=== PATIENT | male | born 1955 | race Caucasian/White ===

== ENCOUNTER 2025-04-02 15:46 | Emergency (ER) | payer OTHER, MEDICARE, SELFPAY ==
--- NOTE | ~2025-04-02 | US_ITS ---
EXAMINATION: US venous doppler [facility] DATE: 04/02/2025 17:12 INDICATION: Left lower limb pain and swelling of couple abnormality at the superior to mid left calf TECHNIQUE: Grayscale ultrasound images without and with compression and Doppler ultrasound images of the left lower extremity veins were obtained. COMPARISON: None. FINDINGS: The visualized portions of left common femoral vein, profunda (deep) femoral vein, femoral vein, popliteal vein, peroneal veins, posterior tibial veins, gastrocnemius vein and greater saphenous vein outflow are patent. There is a 7 x 3.8 x 1.8 cm lenticular complex mixed hypoechoic and anechoic cystic lesion at the lateral aspect of the superior to mid left calf. No evident internal vascular flow within the hypoechoic components on color Doppler to suggest neoplasm. IMPRESSION: 1. No deep venous thrombosis in the left lower limb. 2. 7 x 3.8 x 1.8 cm lenticular complex cystic lesion at the lateral aspect of the superior to mid left calf for which differential would include hematoma, abscess in the appropriate clinical setting or Avelar's cyst with synovitis. Reviewed, dictated and finalized at location A. IMPRESSION: 1. No deep venous thrombosis in the left lower limb. 2. 7 x 3.8 x 1.8 cm lenticular complex cystic lesion at the lateral aspect of t he superior to mid left calf for which differential would include hematoma, abs cess in the appropriate clinical setting or Avelar's cyst with synovitis.
[2025-04-02 15:51] VITALS: BP 184/100; PULSE 101; RESP 20; TEMP 36.9; O2SAT 99
[2025-04-02] MEDS: IBUPROFEN 400 MG TABLET 800 MG PO (17:20)
[2025-04-02] MEDS: ACETAMINOPHEN 500 MG TABLET 1000 MG PO (17:21)
--- NOTE | 2025-04-02 17:21 | ED.LOWEXIN ---
HPI - Extremity Injury (Lower) General Chief Complaint: Extremity Injury, Lower Stated Complaint: left leg injury Time Seen by Provider: 04/02/25 16:55 History of Present Illness HPI Narrative: 69-year-old otherwise healthy male with history of hypertension presenting to the emergency department after minor injury at school. 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 Patient noticed that approximately 1:00 p.m. he started having some pain in his left calf and was some swelling and slight pain. Denies any significant traumatic injuries. Denies any falls or direct traumatic injury. No history of blood clots, no blood thinner use. Did not take his blood pressure medications today prior to arrival. Denies any other injuries anywhere else. He ambulatory with a slight limp favoring his right side secondary to pain. No weakness or paresthesias. No sensation changes or loss of motor function. Related Data Allergies Allergy/AdvReac Type Severity Reaction Status Date / Time No Known Allergies Allergy Verified 04/02/25 16:11 Review of Systems Review of Systems: As reviewed above in HPI Exam Narrative: GENERAL: [Well-appearing, well-nourished, and in no acute distress.] HEAD: [Normocephalic, atraumatic.] EYES: [PERRLA and EOMI.] ENT: Nares clear, no rhinorrhea or epistaxis. Mucous membranes moist. NECK: Supple. CHEST: [Clear to auscultation. No respiratory distress.] HEART: [Regular rate and rhythm]. No murmur heard. [Normal peripheral pulses.] ABDOMEN: [Soft, nondistended], [nontender], [No rigidity or guarding] EXTREMITIES: Normal range of motion. 2+ dorsalis pedis and posterior tibialis pulses, warm extremities. Full range of motion of the ankle plantar and dorsiflexion range. Ambulatory. The medial aspect of his left calf has what appears to be a hematoma formation with some slight bluish discoloration over the skin and tenderness over the medial aspect of the calf but no significant exquisite tenderness, compartments are soft but slightly more tense compared to the right side. No posterior masses felt, no palpable cords or obvious signs of DVT. SKIN: Warm, dry, no rash. NEURO: [No focal deficits]. Alert and oriented [x3.] PSYCH: [Normal mood and affect.] Course Vital Signs Vital signs: Vital Signs Temperature 36.9 C 04/02/25 15:51 Pulse Rate 101 H 04/02/25 15:51 Respiratory Rate 20 04/02/25 15:51 Blood Pressure 184/100 H 04/02/25 15:51 Pulse Oximetry 99 04/02/25 15:51 Oxygen Delivery Room Air 04/02/25 15:51 Temperature 36.9 C 04/02/25 15:51 Pulse Rate 101 H 04/02/25 15:51 Respiratory Rate 20 04/02/25 15:51 Blood Pressure 184/100 H 04/02/25 15:51 Pulse Oximetry 99 04/02/25 15:51 Oxygen Delivery Room Air 04/02/25 15:51 MDM - Extremity Injury (Lower) MDM Narrative Medical decision making narrative: 69-year-old otherwise healthy male with history of hypertension presenting to the emergency department after minor injury at school. 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 Patient noticed that approximately 1:00 p.m. he started having some pain in his left calf and was some swelling and slight pain. Denies any significant traumatic injuries. Denies any falls or direct traumatic injury. No history of blood clots, no blood thinner use. Did not take his blood pressure medications today prior to arrival. Denies any other injuries anywhere else. He ambulatory with a slight limp favoring his right side secondary to pain. No weakness or paresthesias. No sensation changes or loss of motor function. Exam reassuring with normal range of motion. 2+ dorsalis pedis and posterior tibialis pulses, warm extremities. Full range of motion of the ankle plantar and dorsiflexion range. Ambulatory. The medial aspect of his left calf has what appears to be a hematoma formation with some slight bluish discoloration over the skin and tenderness over the medial aspect of the calf but no significant exquisite tenderness, compartments are soft but slightly more tense compared to the right side. No posterior masses felt, no palpable cords or obvious signs of DVT. Differential likely includes musculoskeletal hematoma, calf hematoma, less likely DVT or bony anomaly. Ultrasound was ordered for further delineation he is given Tylenol and ibuprofen as well as ice pack for comfort. Ultrasound reveals hematoma formation, no DVT. Consistent with his local exam findings and injury pattern. Patient counseled on expected management of calf hematomas as well as red flags to watch out for including signs and symptoms of compartment pressure elevations or compartment syndrome which is not evident now. Isaiah wrap was applied for comfort without any compromising without any significant compression and he remains neurovascularly intact. We discharged home with prescriptions for ibuprofen and Tylenol and encouraged to follow-up with his primary care provider. Safe for discharge home at this time. Medical Records Attestation: I reviewed the patient's medical records. Imaging Data Attestation: I personally reviewed and interpreted this imaging study as follows: My impression: Impressions Venous Doppler Study 04/02/25 17:13 IMPRESSION: 1. No deep venous thrombosis in the left lower limb. 2. 7 x 3.8 x 1.8 cm lenticular complex cystic lesion at the lateral aspect of the superior to mid left calf for which differential would include hematoma, abscess in the appropriate clinical setting or Avelar's cyst with synovitis. Discharge Plan Discharge Clinical Impression: Hematoma of left lower leg Patient Disposition: Home Condition: Stable Instructions: Antibiotic Form Additional Instructions: Your ultrasound shows no evidence of a blood clot. You do have a hematoma in the left calf that measures about 7 x 4 cm consistent with your exam findings. We will treat this with a course of anti-inflammatories including Tylenol and ibuprofen as well as having a apply ice to the area up to 20 minutes at a time up to 4 times a day for the next 48 hours and any can start adding in heat products to the area for pain swelling control. Apply gentle compression. Symptoms to watch out for includes worsening pain, worsening swelling to the point that you have difficulty walking, losing sensation in your toes, feeling cold toes or lacking circulation in the extremity, skin discoloration such as blue or purple toes or any other concerns and you should return to the emergency department otherwise follow the regimen above and follow-up with your regular primary care provider outpatient. Patient Language: Swedish Prescriptions: New ibuprofen 800 mg tablet 800 mg PO TID PRN (Reason: pain) Qty: 30 0RF acetaminophen [Tylenol Extra Strength] 500 mg tablet 1,000 mg PO TID PRN (Reason: pain) Qty: 30 0RF Follow-up/Referrals: UNKNOWN,DOCTOR [Non-Staff] Time of Disposition: 17:36
--- OUTSIDE RECORDS SUMMARY | 2025-04-02 18:00 | XMS_ITS | Data Portability ---
Author Organization [place] - [employer], Main Office Address [address] [place] [address] Care Team Providers Care Project Product Manager Name Role Phone TRAV BENITES Primary Care Provider [phone] Assessment Encounter Date Assessment Date Assessment LastModified by Organization Details LastModified Time 02/26/2025 02/26/2025 69 yo M with - WELL ADULT VISIT - B/L EAR WAX - UNINTENTIONAL WT LOSS - HTN, new - BPH - GERD - OVERWEIGHT - EX-CIGAR SMOKER (for 8 yrs) D/w pt about his findings, recent labs & imagines and further plan of care. Will do routine labs, x-ray. Meds as directed. Diet and exercise explained in detail. BP diary education given. Fall risk precautions explained. Cont f/u with GI/Surg as per schedule. HM: EGD - 2017, normal as per pt. Cont f/u with GI as per schedule. Colonoscopy - 2022, polyps ++. Cont f/u with GI as per schedule. Flu - Pt declined. Tdap - Pt declined. Pneumo, Shingrix, RSV - At pharmacy/HD. F/u in 3 weeks. B/l ear flushing on next visit. Annual labs in 03/14. [email or web address] Not available 02/26/2025 17:06:35 03/20/2025 03/20/2025 69 yo M with - DM II, uncontrolled - HLD, uncontrolled - HTG, uncontrolled - B/L EAR WAX - UNINTENTIONAL WT LOSS - HTN - BPH - GERD - OVERWEIGHT - EX-CIGAR SMOKER (for 8 yrs) CXR: 03/03/25. Annual labs: 02/28/25. D/w pt about his findings, recent labs & imagines and further plan of care. Explained about different options for him. Meds as directed. Risks Vs benefits of Aspirin 81mg po daily with food explained. Pt agreed. Diet and exercise explained in detail. BP & DM diary education given. Fall risk precautions explained. F/u with Ophtho as per schedule. Cont f/u with GI/Surg as per schedule. HM: EGD - 2017, normal as per pt. Cont f/u with GI as per schedule. Colonoscopy - 2022, polyps ++. Cont f/u with GI as per schedule. Flu - Pt declined. Tdap - Pt declined. Pneumo, Shingrix, RSV - At pharmacy/HD. F/u in 1 month. B/l ear flushing on next visit. Refer to [employer] on next visit. A1c, lipids, Microalb in 07/14. Annual labs in 03/14. [email or web address] Not available 03/20/2025 12:55:12 Plan of Treatment Reminders Order Date Submit Date Provider Last Modified By Organization Details Last Modified Time Details Appointments Any 30 2024 10:15A Rosetta Benites MD Not available Not available Not available Lab lipid panel, serum 2024 [email or web address] [facility] (Lab), [address] [place], [address], 03/20/2025 12:38:26 HbA1c (hemoglob in A1c), blood 2024 [id number] [facility] (Lab), [address] [place], [address], 03/20/2025 12:38:25 microalbu min, urine 2024 [id number] [facility] (Lab), [address] [place], [address], 03/20/2025 12:38:26 vitamin D, 25-hydrox y, total, serum 2024 [id number] [facility] (Lab), [address] [place], [address], 03/13/2025 12:04:48 CMP, serum or plasma 2024 025 [facility] (Lab), [address] [place], [address], 02/28/2025 12:42:53 CBC w/ auto diff 2024 025 [facility] (Lab), [address] [place], [address], 02/28/2025 12:37:11 lipid panel, blood [address] (Lab), [address] [place], [address], 03/13/2025 12:04:48 TSH, serum, reflex free T4 [address] (Lab), [address] [place], [address], 03/06/2025 11:18:21 PSA, serum or plasma [address] (Lab), [address] [place], [address], 03/06/2025 11:18:21 urinalysi s complete, reflex culture [address] (Lab), [address] [place], [address], 03/06/2025 11:18:21 HbA1c (hemoglob in A1c), blood [address] (Lab), [address] [place], [address], 03/06/2025 11:18:21 Referral ophthalmo logist referral - Please call patient to schedule an appointme nt. Thank you. 2024 [facility], [address], [place], [address], 03/24/2025 11:35:20 Procedures None recorded. Surgeries None recorded. Imaging XR, chest, 2 view 2024 [facility] ([facility]), [address] [place], [address], 03/03/2025 17:27:48 Medication Orders rosuvasta tin 10 mg tablet 2024 [facility] #[id number], [address], [place], [id number], 03/20/2025 12:38:36 metformin ER 500 mg tablet,ex tended release 24 hr 2024 [facility] #[id number], [address] [place], [place], [id number], 03/20/2025 12:38:35 Farxiga 10 mg tablet 2024 [facility] #[id number], [address] [place], [place], [id number], 03/20/2025 12:38:33 glimepiri de 1 mg tablet 2024 [facility] #[id number], [address], [place], [id number], 03/20/2025 12:38:34 Lantus Solostar U-100 Insulin 100 unit/mL (3 mL) subcutane ous pen 2024 [facility] #[id number], [address], [place], [id number], 03/20/2025 12:44:44 tamsulosi n 0.4 mg capsule 2024 025 [facility]62830, [address], [place], [id number], 03/20/2025 12:38:38 losartan 25 mg tablet 2024 025 [facility] #[id number], [address], [place], [id number], 03/20/2025 12:38:35 losartan 25 mg tablet 2024 025 [id number] [facility], [address] [place], [place], [id number], 02/26/2025 17:02:12 Debrox 6.5 % ear drops 2024 025 [id number], [address], [place], [id number], 02/26/2025 15:48:50 tamsulosi n 0.4 mg capsule 2024 025 [facility], [address], [place], [id number], 02/26/2025 15:52:35 Patient TargetsNo targets recorded. Patient Instructions Encounter Date Encounter Id Patient Instructions Last Modified By Organization Details Last Modified Time 03/20/2025 [id number] high cholesterol : care instructions Not available 03/20/2025 12:38:26 type 2 diabetes: care instructions Not available 03/20/2025 12:38:26 high blood pressure: care instructions Not available 03/20/2025 12:38:26 Reason for Referral Materials Associate Referral for Hypoglycemia due to type 2 diabetes mellitus Please call patient to schedule an appointment. Thank you. Referring Physician: Trav Benites, Family Medicine, Encounter Date: 03/20/2025 Results Created Date Observation Date Name Description Value Unit Range Abnormal Flag Note LastModifiedBy Organization Detail LastModifiedTime 02/29/2002/28/2025 CBC/C OMPLE TE BLD COUNT W/DIF F white blood cells 5.7 x10'3 /uL 4.2-10 .8 Not Available [facility] (Lab) [address] [place], [address], 02/28/2025 12:37:11 02/29/2002/28/2025 CBC/C OMPLE TE BLD COUNT W/DIF F red blood cells 5.01 x10'6 /uL 4.10-5 .80 Not Available [facility] (Lab) [address] [facility] [place], [address], 02/28/2025 12:37:11 02/29/2002/28/2025 CBC/C OMPLE TE BLD COUNT W/DIF F hemoglobin 16.1 g/dL 13.2-1 7.0 Not Available [facility] (Lab) [address] [place], [address], 02/28/2025 12:37:11 02/29/2002/28/2025 CBC/C OMPLE TE BLD COUNT W/DIF F hematocrit 45.9 % 39.3-5 0.0 Not Available [facility] (Lab) [address] [place], [address], 02/28/2025 12:37:02/29/2002/28/2025 CBC/C OMPLE TE BLD COUNT W/DIF F mean red cell volume 91.6 fL 80.0-9 7.0 Not Available [facility] (Lab) [address] [place], [address], 02/28/2025 12:37:11 02/29/2002/28/2025 CBC/C OMPLE TE BLD COUNT W/DIF F mean red cell hemoglobin 32.1 pg 27.0-3 3.0 Not Available [facility] (Lab) [address] [place], [address], 02/28/2025 12:37:11 02/29/2002/28/2025 CBC/C OMPLE TE BLD COUNT W/DIF F mean RBC HGB concentratio n 35.1 g/dL 31.0-3 6.0 Not Available [facility] (Lab) [address] [place], [address], 02/28/2025 12:37:11 02/29/2002/28/2025 CBC/C OMPLE TE BLD COUNT W/DIF F red cell distribution width 11.8 % 11.8-1 5.5 Not Available [facility] (Lab) [address] [place], [address], 02/28/2025 12:37:11 02/29/2002/28/2025 CBC/C OMPLE TE BLD COUNT W/DIF F platelets 164 x10'3 /uL 150-40 0 Not Available [facility] (Lab) [address] [place], [address], 02/28/2025 12:37:11 02/29/2002/28/2025 CBC/C OMPLE TE BLD COUNT W/DIF F mean platelet volume 11.4 fL 9.0-12 .4 Not Available [facility] (Lab) [address] [place], [address], 02/28/2025 12:37:11 02/29/2002/28/2025 CBC/C OMPLE TE BLD COUNT W/DIF F neutrophils 62.5 % 39.0-7 2.0 Not Available [facility] (Lab) [address] [facility] [place], [address], 02/28/2025 12:37:11 02/29/2002/28/2025 CBC/C OMPLE TE BLD COUNT W/DIF F lymphocytes 27.2 % 16.0-4 7.0 Not Available [facility] (Lab) [address] [place], [address], 02/28/2025 12:37:02/29/2002/28/2025 CBC/C OMPLE TE BLD COUNT W/DIF F monocytes 7.9 % 5.0-12 .0 Not Available [facility] (Lab) [address] [place], [address], 02/28/2025 12:37:02/29/2002/28/2025 CBC/C OMPLE TE BLD COUNT W/DIF F eosinophils 1.0 % 1.0-7. 0 Not Available [facility] (Lab) [address] [place], [address], 02/28/2025 12:37:02/29/2002/28/2025 CBC/C OMPLE TE BLD COUNT W/DIF F basophils 0.9 % 0.0-2. 0 Not Available [facility] (Lab) [address] [place], [address], 02/28/2025 12:37:02/29/2002/28/2025 CBC/C OMPLE TE BLD COUNT W/DIF F immature granulocytes 0.5 % 0.00-0 .50 Not Available [facility] (Lab) [address] [place], [address], 02/28/2025 12:37:02/29/2002/28/2025 CBC/C OMPLE TE BLD COUNT W/DIF F neutrophils, absolute count 3.58 x10'3 /uL 1.5-8. 0 Not Available [facility] (Lab) [address] [place], [address], 02/28/2025 12:37:11 02/29/2002/28/2025 CBC/C OMPLE TE BLD COUNT W/DIF F lymphocytes, absolute count 1.56 x10'3 /uL 1.07-3 .43 Not Available [facility] (Lab) [address] [place], [address], 02/28/2025 12:37:02/29/2002/28/2025 CBC/C OMPLE TE BLD COUNT W/DIF F monocytes, absolute count 0.45 x10'3 /uL 0.29-0 .99 Not Available [facility] (Lab) [address] [place], [address], 02/28/2025 12:37:11 02/29/2002/28/2025 CBC/C OMPLE TE BLD COUNT W/DIF F eosinophils, absolute count 0.06 x10'3 /uL 0.02-0 .53 Not Available [facility] (Lab) [address] [place], [address], 02/28/2025 12:37:11 02/29/2002/28/2025 CBC/C OMPLE TE BLD COUNT W/DIF F basophils, absolute count 0.05 x10'3 /uL 0.01-0 .08 Not Available [facility] (Lab) [address] [place], [address], 02/28/2025 12:37:02/29/2002/28/2025 CBC/C OMPLE TE BLD COUNT W/DIF F immature granulocytes ,absolute 0.03 x10'3 /uL 0.00-0 .05 Not Available [facility] (Lab) [address] [place], [address], 02/28/2025 12:37:02/29/2002/28/2025 CBC/C OMPLE TE BLD COUNT W/DIF F nucleated red blood cells 0.0 % -0 Not Available [facility] (Lab) [address] [place], [address], 02/28/2025 12:37:11 02/29/2002/28/2025 CBC/C OMPLE TE BLD COUNT W/DIF F NRBC# 0.00 x10'3 /uL Not Available [facility] (Lab) [address] [place], [address], 02/28/2025 12:37:11 02/29/2002/28/2025 LIPID PANEL cholesterol 232 mg/dL 140-19 9 high NIH ALIZE NSUS RECOM MENDA TION FOR RAINER STERO L: ADULT CHILD LOW RISK: <200 <170 BORDE RLINE : <200- 239 ----- HIGH RISK: >240 >200 Not Available [facility] (Lab) [address] [place], [address], 02/28/2025 12:42:41 02/29/2002/28/2025 LIPID PANEL triglyceride s 268 mg/dL 0-150 high NIH ALIZE NSUS REPOR T RECOM MENDA TION FOR TRIGL YCERI LUCINA: ADULT CHILD LOW RISK: <150 ----- BODER LINE: 150-1 99 ----- HIGH RISK: >200 ----- Not Available [facility] (Lab) [address] [place], [address], 02/28/2025 12:42:41 02/29/2002/28/2025 LIPID PANEL HDL cholesterol 37 mg/dL 40- low Not Available [facility] (Lab) [address] [place], [address], 02/28/2025 12:42:41 02/29/2002/28/2025 LIPID PANEL LDL cholesterol, calculated 141 mg/dL 0-130 high NIH ALIZE NSUS REPOR T RECOM MENDA TIONS FOR LDL: ADULT CHILD LOW RISK <130 <110 (OPTI MAL LDL) <100 ----- BORDE RLINE : 130-1 59 ----- HIGH RISK: >160 >130 A TRIGL YCERI DE RESUL T >400 INVAL IDATE S THE CALCU LATIO N FOR LDL FRACT IONAT ION - THE LDL RESUL T WILL NOT BE REPOR REBECCA. Not Available [facility] (Lab) [address] [place], [address], 02/28/2025 12:42:41 02/29/2002/28/2025 COMPR EHENS MANJU METAB OLIC PANEL sodium 132 mmol/ L 137-14 5 low Not Available [facility] (Lab) [address] [place], [address], 02/28/2025 12:42:52 02/29/2002/28/2025 COMPR EHENS MANJU METAB OLIC PANEL potassium 4.5 mmol/ L 3.5-5. 1 Not Available [facility] (Lab) [address] [place], [address], 02/28/2025 12:42:52 02/29/2002/28/2025 COMPR EHENS MANJU METAB OLIC PANEL chloride 95 mmol/ L 98-107 low Not Available [facility] (Lab) [address] [place], [address], 02/28/2025 12:42:52 02/29/2002/28/2025 COMPR EHENS MANJU METAB OLIC PANEL carbon dioxide 28 mmol/ L 22-30 Not Available [facility] (Lab) [address] [place], [address], 02/28/2025 12:42:52 02/29/2002/28/2025 COMPR EHENS MANJU METAB OLIC PANEL anion gap 13.5 mmol/ L 14-22 low Not Available [facility] (Lab) [address] [place], [address], 02/28/2025 12:42:52 02/29/2002/28/2025 COMPR EHENS MANJU METAB OLIC PANEL glucose 396 mg/dL 70-99 high Not Available [facility] (Lab) [address] [place], [address], 02/28/2025 12:42:52 02/29/20 25 02/28/2025 COMPR EHENS MANJU METAB OLIC PANEL BUN 16 mg/dL 8-19 Not Available [facility] (Lab) [address] [place], [address], 02/28/2025 12:42:52 02/29/20 25 02/28/2025 COMPR EHENS MANJU METAB OLIC PANEL creatinine 0.98 mg/dL 0.66-1 .25 Not Available [facility] (Lab) [address] [place], [address], 02/28/2025 12:42:52 02/29/2002/28/2025 COMPR EHENS MANJU METAB OLIC PANEL GFR >60 Refer ence Range : [place] ge GFR Healt hy Adult : >60 mL/mi n/1.7 3 m2 Chron ic Kidne y Disea se: 15-60 mL/mi n/1.7 3 m2 Kidne y Failu re: <15/m L/min /1.73 m2 www.n iddk. nih.g ov The MDRD study equat ion has not been valid ated in child sameera <18 years of age; pregn ant women ; the elder ly >85 years of age; or in some racia l or ethni c subgr oups, such as [facility] nics. Outsi de the valid ated anderson eters , estim ated GFR is less accur ate, requi ring clini sina judgm ent on a case- by-ca se basis . Clini sina inter preta tion for other races and ages must be made by the clini yogesh. The MDRD study equat ion has not been valid ated for the evalu ation of serum creat inine relat ed to nutri sindy l statu s or medic ation usage . For perso ns <18 years of age, a pedia tric GFR calcu lator is avail able on the F websi te: https ://sergo veras.o rg/pr ofess ional s/kdo qi/gf r_cal culat or Not Available [facility] (Lab) [address] [place], [address], 02/28/2025 12:42:52 02/29/2002/28/2025 COMPR EHENS MANJU METAB OLIC PANEL alkaline phosphatase 108 U/L 38-126 Not Available [facility] (Lab) [address] [place], [address], 02/28/2025 12:42:52 02/29/2002/28/2025 COMPR EHENS MANJU METAB OLIC PANEL alanine aminotransfe rase 21 U/L 0-50 Not Available [facility] (Lab) [address] [facility] [place], [address], 02/28/2025 12:42:52 02/29/2002/28/2025 COMPR EHENS MANJU METAB OLIC PANEL aspartate aminotransfe rase 24 U/L 15-46 Not Available [facility] (Lab) [address] [place], [address], 02/28/2025 12:42:52 02/29/2002/28/2025 COMPR EHENS MANJU METAB OLIC PANEL bilirubin, total 1.10 mg/dL 0.20-1 .30 Not Available [facility] (Lab) [address] [place], [address], 02/28/2025 12:42:52 02/29/2002/28/2025 COMPR EHENS MANJU METAB OLIC PANEL calcium 9.4 mg/dL 8.4-10 .2 Not Available [facility] (Lab) [address] [place], [address], 02/28/2025 12:42:52 02/29/2002/28/2025 COMPR EHENS MANJU METAB OLIC PANEL total protein 7.5 g/dL 6.3-8. 2 Not Available [facility] (Lab) [address] [place], [address], 02/28/2025 12:42:52 02/29/2002/28/2025 COMPR EHENS MANJU METAB OLIC PANEL albumin 4.5 g/dL 3.0-4. 4 high Not Available [facility] (Lab) [address] [place], [address], 02/28/2025 12:42:52 02/29/2002/28/2025 COMPR EHENS MANJU METAB OLIC PANEL globulin 3.0 g/dL 2.6-4. 2 Not Available [facility] (Lab) [address] [place], [address], 02/28/2025 12:42:52 02/29/2002/28/2025 COMPR EHENS MANJU METAB OLIC PANEL A/G ratio 1.5 ratio 1.0-2. 0 Not Available [facility] (Lab) [address] [place], [address], 02/28/2025 12:42:52 02/29/2002/28/2025 VITAM IN D 25-HY DROXY [id number] 32.5 NG/mL 30-100 Vitam in D Statu s: Defic ient: <20 ng/mL Insuf ficie nt: 20-29 ng/mL Suffi cient : 30-10 0 ng/mL Not Available [facility] (Lab) [address] [place], [address], 02/28/2025 12:45:31 02/29/2002/28/2025 TSH W/REF REICA FT4 TSH with reflex free T4 1.100 uIU/m L 0.465- 4.680 Not Available [facility] (Lab) [address] [place], [address], 02/28/2025 13:03:34 02/29/2002/28/2025 PSA SCREE N PSA medicare screen 2.89 NG/mL 0.00-4 .00 Not Available [facility] (Lab) [address] [place], [address], 02/28/2025 13:03:35 02/29/2002/28/2025 URINA LYSIS COMPL ETE/I RIS W/RFX color LIGHT- YELLOW Not Available [facility] (Lab) [address] [facility], [address], 02/28/2025 13:34:11 02/29/2002/28/2025 URINA LYSIS COMPL ETE/I RIS W/RFX appear CLEAR Not Available [facility] (Lab) [address] [place], [address], 02/28/2025 13:34:11 02/29/2002/28/2025 URINA LYSIS COMPL ETE/I RIS W/RFX specific gravity 1.046 1.001- 1.030 high Not Available [facility] (Lab) [address] [place], [address], 02/28/2025 13:34:11 02/29/2002/28/2025 URINA LYSIS COMPL ETE/I RIS W/RFX pH 5.5 pH_un its 5.0-9. 0 Not Available [facility] (Lab) [address] [place], [address], 02/28/2025 13:34:11 02/29/2002/28/2025 URINA LYSIS COMPL ETE/I RIS W/RFX leukocytes NEGATI VE gregg/u L negati ve- Not Available [facility] (Lab) [address] [place], [address], 02/28/2025 13:34:11 02/29/2002/28/2025 URINA LYSIS COMPL ETE/I RIS W/RFX nitrite NEGATI VE negati ve- Not Available [facility] (Lab) [address] [place], [address], 02/28/2025 13:34:11 02/29/2002/28/2025 URINA LYSIS COMPL ETE/I RIS W/RFX protein NEGATI VE mg/dL negati ve- Not Available [facility] (Lab) [address] [place], [address], 02/28/2025 13:34:11 02/29/2002/28/2025 URINA LYSIS COMPL ETE/I RIS W/RFX glucose >/=100 0 mg/dL normal - abnormal Not Available [facility] (Lab) [address] [place], [address], 02/28/2025 13:34:11 02/29/2002/28/2025 URINA LYSIS COMPL ETE/I RIS W/RFX ketones 40 mg/dL negati ve- abnormal Not Available [facility] (Lab) [address] [place], [address], 02/28/2025 13:34:11 02/29/2002/28/2025 URINA LYSIS COMPL ETE/I RIS W/RFX urobilinogen NORMAL mg/dL normal - Not Available [facility] (Lab) [address] [place], [address], 02/28/2025 13:34:11 02/29/2002/28/2025 URINA LYSIS COMPL ETE/I RIS W/RFX bilirubin NEGATI VE mg/dL negati ve- Not Available [facility] (Lab) [address] [place], [address], 02/28/2025 13:34:11 02/29/2002/28/2025 URINA LYSIS COMPL ETE/I RIS W/RFX blood NEGATI VE mg/dL negati ve- Not Available [facility] (Lab) [address] [place], [address], 02/28/2025 13:34:11 02/29/2002/28/2025 URINA LYSIS COMPL ETE/I RIS W/RFX white blood cells 0-8 /i??h pfi?? 0-8 Not Available [facility] (Lab) [address] [place], [address], 02/28/2025 13:34:11 02/29/2002/28/2025 URINA LYSIS COMPL ETE/I RIS W/RFX red blood cells 0-4 /i??h pfi?? 0-4 Not Available [facility] (Lab) [address] [place], [address], 02/28/2025 13:34:11 02/29/2002/28/2025 URINA LYSIS COMPL ETE/I RIS W/RFX bacteria NONE none seen- Not Available [facility] (Lab) [address] [place], [address], 02/28/2025 13:34:11 02/29/2002/28/2025 URINA LYSIS COMPL ETE/I RIS W/RFX mucous OCCASI ONAL /i??l pfi?? none seen- abnormal Not Available [facility] (Lab) [address] [place], [address], 02/28/2025 13:34:11 02/29/2002/28/2025 URINA LYSIS COMPL ETE/I RIS W/RFX squamous epithelial NONE /i??l pfi?? abnormal Not Available [facility] (Lab) [address] [place], [address], 02/28/2025 13:34:11 02/29/2002/28/2025 HEMOG LOBIN A1C HA1C 12.3 % 4.0-6. 0 high Diabe kylah Scree brian Crite dillon: <5.7% Consi stent with absen ce of diabe kylah 5.7-6 .4% Consi stent with incre ased risk for diabe kylah (pred iabet es) >OR=6 .5% Consi stent with diabe kylah REFER ENCE: Diabe kylah Care 2016, 39( ppl.1 ):s13 -s22 Not Available [facility] (Lab) [address] [place], [address], 02/28/2025 14:14:36 03/03/20 25 03/03/2025 XR, chest , 2 view [facility] [address] [place] [address] [phone] RADIOL OGY REPORT _ Patien t Name: KATELYNN RUSHING W Date Of : [birth year] 5 Date Of Study: 025 Ref. Physic oalf: KARLIE Walsh MD _ Examin ation: XR CHEST 2V Clinic al Indica tion: Routin e check up. denies sob or pain in chest. former smoker of cigars . Compar tj: None. Techni que: Radiog raph of the Chest Fronta l and latera l views were obtain ed. Findin gs: Lungs are clear and well expand ed with no pulmon ja infilt rate or pleura l effusi on. There is no pneumo thorax . The cardio medias tinal silhou ette is within normal limits . No acute osseou s abnorm ality is seen. Impres angela: No acute cardio pulmon ja diseas e is seen. Electr onical ly Signed 025 16:26 Pivi Leos [email or web address] [facility] (Imaging) [address] [place], [address], 03/20/2025 12:29:28 Result Notes Documentation Provider Name and Address Organization Details Recorded Time Xr, Chest, 2 View : [facility] [address] [place] [address] [phone] RADIOLOGY REPORT Patient Name: MACARIO Saenz Date Of : 1955 Date Of Study: 03/03/2025 Ref. Physician: KARLIE ANDERSON MD Examination: XR CHEST 2V Clinical Indication: Routine check up. denies sob or pain in chest. former smoker of cigars. Comparison: None. Technique: Radiograph of the Chest Frontal and lateral views were obtained. Findings: Lungs are clear and well expanded with no pulmonary infiltrate or pleural effusion. There is no pneumothorax. The cardiomediastinal silhouette is within normal limits. No acute osseous abnormality is seen. Impression: No acute cardiopulmonary disease is seen. Electronically Signed 03/03/2025 16:26 Betty Benites MD [address] [facility], [facility] [address], [place], [address], [facility] [employer] 03/20/2025 12:29:28 Problems Name Problem SNOMED Code Status Onset Date Resolution Date Notes Provider Name and Address Organization Details Recorded Time Gastroesoph ageal reflux disease without esophagitis 975509419 Active 2024 Trav Benites MD [address] [facility], [address], [place], [address], [employer] 15:44:14 Body mass index 25-29 - overweight [id number] Active 2024 Trav Benites MD [address] [facility], [address] [address], [place], [address], [employer] 15:44:24 Excessive cerumen in ear canal 521603092 Active 2024 Trav Benites MD [address] [facility], [facility] [address], [place], [address], [employer] 15:46:46 Benign hypertensio n 62979691 Active 2024 Trav Benites MD [address] [facility], [address] [place] [address], [place], [address], [employer] 15:50:25 Benign prostatic hyperplasia with outflow obstruction 809758523 Active 2024 Trav Benites MD [address] [facility], [address] [place] [address], [place], [address], [employer] 15:52:07 Ex-cigar smoker 827854332 Active 2024 Trav Benites MD [address] [facility], [address] [address], [place], [address], [employer] 17:05:01 Unintention al weight loss 041590778 Active 2024 Trav Benites MD [address] [facility], [address] [address], [place], [address], [employer] 17:06:10 Hypoglycemi a due to type 2 diabetes mellitus 5207042270029 03 Active 2024 Trav Benites MD [address] [facility], [facility] [address], [place], [address], [employer] 12:32:21 Mixed hyperlipide lilia 328028682 Active 2024 Trav Benites MD [address], [address], [place], [address], [facility] [employer] [facility] 12:34:55 Diabetes mellitus 74240776 Active 2024 Trav Benites MD [address], [address], [place], [address], [facility] [employer] [facility] [employer] [facility] 12:40:34 Problem Notes None recorded. Procedures Surgical History Date Name Laterality Status Provider Name and Address Organization Details Recorded Time 02/01/20 16 excision of lymph node completed Jud Ellington RN [facility] [employer] [facility] 02/26/2025 15:39:31 04/08/20 13 extraction of wisdom tooth completed Jud Ellington RN [facility] [employer] [facility] 02/26/2025 15:40:17 09/11/19 13 Back Surgery completed Jud Ellington RN [facility] [employer] [facility] 02/26/2025 15:39:09 11/02/19 11 repair of tendon of upper limb completed Jud Ellington RN [facility] [employer] [facility] 02/26/2025 15:38:17 12/26/18 84 arthroscopy of shoulder completed Jud Ellington RN [facility] [employer] [facility] 02/26/2025 15:37:44 05/01/19 72 appendectomy completed Jud Ellington RN [facility] [employer] [facility] 02/26/2025 15:37:00 Imaging Results None recorded. Procedure Notes None recorded. Medical Equipment None Reported. Allergies No known drug allergies Medications Name Sig Start Date Stop Date Status Note LastModified by Organization Details LastModified Time Debrox 6.5 % ear drops INSTILL 4 DROPS INTO AFFECTED EAR(S) BY OTIC ROUTE 2 TIMES PER DAY 2024 active Not Available Not Available Not Avai lable Accu-Chek Softclix Lancets USE 2-3 TIMES DAILY DIRECTED active Not Available Not Available No t Available omeprazole 40 mg capsule,del ayed release TAKE 1 CAPSULE BY MOUTH DAILY active Not Available Not Available No t Available glimepiride 1 mg tablet TAKE 1 TABLET BY MOUTH TWICE DAILY WITH MEALS active Not Available Not Available No t Available tamsulosin 0.4 mg capsule TAKE 1 CAPSULE BY MOUTH EVERY DAY AT BEDTIME active Not Available Not Available No t Available losartan 25 mg tablet TAKE 1 TABLET BY MOUTH DAILY active Not Available Not Available No t Available ondansetron 4 mg disintegrat ing tablet DISSOLVE 1 TABLET ON THE TONGUE EVERY 6 HOURS NEEDED FOR NAUSEA OR VOMITING 02/26 completed Not Available Not Available Not Available metformin ER 500 mg tablet,exte nded release 24 hr TAKE 2 TABLETS BY MOUTH TWICE DAILY AFTER MEALS active Not Available Not Available No t Available rosuvastati n 10 mg tablet TAKE 1 TABLET BY MOUTH EVERY DAY AT BEDTIME active Not Available Not Available No t Available Lantus Solostar U-100 Insulin 100 unit/mL (3 mL) subcutaneou s pen ADMINISTE R 20 UNITS UNDER THE SKIN EVERY DAY DIRECTED active Not Available Not Available No t Available Farxiga 10 mg tablet TAKE 1 TABLET BY MOUTH EVERY DAY AT NOON active Not Available Not Available No t Available Accu-Chek Guide Me Glucose Meter USE TO TEST BLOOD SUGAR active Not Available Not Available No t Available Paxlovid 300 mg (150 mg x 2)-100 mg tablets in a dose pack TK 2 NIRMATREL VIR TS AND 1 RITONAVIR T TOGETHER PO TWICE DAILY 02/26 completed Not Available Not Available Not Available Vitals Date Recorded Heart rate Provider Name an d Address Organization Details Last Updated DateTime 02/26/2025 96 /min Rosetta Greenwood [email or web address], [place], [address], [facility] [employer] 02/26/2025 15:42:09 Date Recorded Body height Body mass index (BMI) Body weight Body temperature Oxygen saturation Oxygen saturation in Arterial blood by Pulse oximetry Systolic And Diastolic Provider Name and Address Organization Details Last Updated DateTime 177.8 cm 29.2 kg/m2 20729.7 g 97.4 [degF] 94 % 94 % 138/84 mm[Hg] Jud Ellington RN [facility] [employer] 15:24:13 Date Recorded Oxygen saturation Oxygen saturation in Arterial blood by Pulse oximetry Heart rate Provider Name and Address Organization Details Last Updated DateTime 03/20/2025 95 % 95 % 98 /min Trav Benites MD [address] [email or web address], [address], [facility] [employer] 03/20/2025 12:52:43 Date Recorded Body height Body mass index (BMI) Body weight Body temperature Systolic And Diastolic Provider Name and Address Organization Details Last Updated DateTime 03/20/2025 177.8 cm 28.9 kg/m2 08203.7 7 g 98.1 [degF] 140/70 mm[Hg] Jud Ellington RN [facility] [employer] 12:25:21 Social History Question Answer Notes LastModified by [facility] Details LastModified Time Tobacco Smoking Status Former Smoker Jud Ellington RN [facility], [facility] [employer] 02/26/2025 15:36:16 What Is Your Level Of Caffeine Consumption? Moderate 20 Oz Coffee /day 32 Oz Andrews Pepsi/day [email or web address] Information not available 02/26/2025 When Did You Quit Smoking? 16+yearssince lastcigarette [email or web address] Information not available 02/26/2025 What Is Your Current Pack Years? 10packyears [email or web address] Information not available 02/26/2025 At What Age Did You Start Smoking Tobacco? 22 [email or web address] Information not available 02/26/2025 How Much Tobacco Do You Smoke? 0.25 PPD Smoked Cigars [email or web address] Information not available 02/26/2025 How Many Years Have You Smoked Tobacco? 5 Smoked Cigars [email or web address] Information not available 02/26/2025 Sex: Unknown Functional Status Question Answer Note LastModified by [facility] Details LastModified Time Do you use any illicit or recreational drugs? No [email or web address] Information not available 02/26/2025 Do you or have you ever used any other forms of tobacco or nicotine? No [email or web address] Information not available 02/26/2025 What is your level of alcohol consumption? Occasional [email or web address] Information not available 02/26/2025 Mental Status None recorded. Family History Relationship Description Onset Age of this Age Resolved Age Notes LastModified by Organization Details LastModified Time Mother Essential hypertension 35 87 [email or web address] Not available 15:25:26 Mother History of cardiac surgery 65 87 [email or web address] Not available 02/26 15:28:18 Mother Cerebrovascu lar accident 65 87 [email or web address] Not available 15:28:35 Mother Malignant neoplasm of skin 65 87 [email or web address] Not available 02/26 15:29:50 Mother Scoliosis deformity of spine 50 87 [email or web address] Not available 02/26 15:33:29 Mother Hammer toe 55 87 [email or web address] Not avail able 02/26/2025 15:33:55 Father Essential hypertension 30 91 [email or web address] Not available 15:26:13 Father Myocardial infarction 55 91 [email or web address] Not available 02/17 15:27:04 Father Combination internal cardiac defibrillato r and pacemaker in situ 65 91 [email or web address] Not available 02/26 15:27:26 Father Malignant neoplasm of prostate 78 91 [email or web address] Not available 02/26 15:29:29 Father Chronic obstructive pulmonary disease 70 91 Not available 02/26 15:32:03 Sister Essential hypertension 50 [email or web address] Not available 07/2024 12:05:54 Sister Scoliosis deformity of spine 50 [email or web address] Not available 2024 12:05:54 Paternal Grandmother Malignant neoplasm of colon 45 73 [email or web address] Not available 02/26 15:30:38 Maternal Grandfather Malignant neoplasm of lung 81 [email or web address] Not available 2024 12:05:54 Maternal Grandfather Malignant neoplasm of stomach 81 [email or web address] Not available 2024 12:05:54 Medical History No medical history recorded. Past Encounters Encounter ID Performer Location Encounter Start Date Encounter Closed Date Diagnosis/Indication Diagnosis SNOMED-CT Code Diagnosis ICD10 Code Diagnosis IMO Codes Diagnosis Note [id number] Trav Benites MD [facility] [address] [address] 02/26/2025 14:29:27 02/26/2025 15:58:34 Adult health examination 378250509 Z00.00 Gastroesop hageal reflux disease without esophagitis 948693054 K21.9 521599 Body mass index 25-29 - overweight 493433703 E66.3 903697 Screening for disorder 399743850 Z13.9 Excessive cerumen in ear canal 433202182 H61.23 11012057 Ex-cigar smoker 47590879 8 Z87.105 9059176 Benign hypertension 1072 5009 I10 824294 Benign pro static hyperplasia with outflow obstruction 207102662 N40.1 N13.8 567998 Unintentio nal weight loss 199902108 R63.4 061648 [id number] Trav Benites MD [address] [address] 02/28/2025 08:23:36 02/28/2025 09:49:06 [id number] Trav Benites MD [address] [address] 03/20/2025 12:05:43 03/20/2025 12:58:18 Gastroesophageal reflux disease without esophagitis 565987540 K21.9 701745 Body mass index 25-29 - overweight 580607529 E66.3 830313 Excessive cerumen in ear canal 116221059 H61.23 44330117 Ex-cigar smoker 53014135 8 Z87.005 1702770 Benign hypertension 1072 5009 I10 943725 Benign pro static hyperplasia with outflow obstruction 490534249 N40.1 N13.8 258136 Unintentio nal weight loss 895363656 R63.4 121576 Hypoglycem ia due to type 2 diabetes mellitus 2090986885 83006 E11.649 80468856 Mixed hyperlipidemia 267 415180 E78.2 84177 Diabetes mellitus 220793 09 E11.9 36420 Health Concerns Section Related Observation LastModified by Organization Detai ls LastModified Time None Recorded Concern Status LastModified by Organization Details LastModified Time None Recorded Advance Directives Directive None Recorded Payers Insurance Date Sequence Insurance Name Policy Number Policy Soria Covered Member ID Soria Member ID Guarantor Name 03/20/2025 1 [employer] (O) [id number] Percy Moseley [id number] 1 Percy Moseley 03/20/2025 1 [employer] [id number] Percy Moseley [id number] 1 Percy Moseley Notes Date Note Type Note Provider Name and Address Organization Details Recorded Time 02/26/2025 text/html New pt visit:69 yo M is here to establish his care. Pt was seeing PCP at [facility] in the past.Doing overall well. Pt has few questions for me. Pt did not have any labs for last few yrs. Pt is f/u with Dr. Montana (Surg) for his chronic GERD and wt loss and had EDG and c-scope done with him.PMH, and SH reviewed. Trav Benites MD [address], [address], [place], [address], [employer] 02/26/2025 17:08:36 03/20/2025 text/html Pt is here for f/u on his labs, cxr and b/l ear flushing. Doing overall well. Denies any new concern. Pt has not used ear drops yet. No h/o DM in the past. Pt did not have any labs done in last 7-8 yrs. Pt is f/u with Dr. Montana (Surg) for his chronic GERD and wt loss and had EDG and c-scope done with him. Trav Benites MD [address], [address], [place], [address], [employer] 03/20/2025 12:56:05
--- OUTSIDE RECORDS SUMMARY | 2025-04-02 18:00 | XMS_ITS | Encounter Summary ---
Author Organization [facility] Address [facility] [place] [address] Care Team Providers Care Cyber Security Engineer Name Role Phone Stacy Coreas MD Primary Care Provider [phone] EDWIN Edmond Angela Primary Care Provider Encounter Details Date Type Department Care Team (Late st Contact Info) Description 09/02/2017 Abstract [facility] CONVERSION [address] [place] [address] , Generic ConversionMD Social History Tobacco Use Types Packs/Day Years Used Date Smoking Tobacco: Never Assessed Sex and Gender Information Value Date Recorded Sex Assigned at Not on file Legal Sex Male 7:05 PM CDT Gender Identity Not on file Sexual Orientation Not on file documented as of this encounter Plan of Treatment Not on file documented as of this encounter Visit Diagnoses Not on filedocumented in this encounter Care Teams Cyber Security Engineer Relationship Specialty Start Date End Date Stacy Coreas MD PCP - General FAMILY PRACTICE 06/07/18 09/05/22 Kate Snowden FNP-BC [address] [place] [address] [place] [address] PCP - General Nurse Practitioner Family 09/06/22 documented as of this encounter
--- OUTSIDE RECORDS SUMMARY | 2025-04-02 18:00 | XMS_ITS | Clinical Summary ---
Author Organization [facility] Address [facility] [place] [address] Care Team Providers Care Airfield Defence Guard Name Role Phone EDWIN Edmond Angela Primary Care Provider Allergies No known active allergies Medications fluorouracil 5 % creamIndication s:Actinic keratoses Apply topically daily. 40 g 8 Active omeprazole 40 MG capsule Take 1 capsule by mouth 2 (two) times daily. 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 Esophageal stricture 06/15/2018 Overview (06/15/2018): S/p dilation 2016 Gastroesophageal reflux disease with esophagitis 06/15/2018 Family History Medical History Relation Comments Coronary artery disease Father Prostate Cancer Father Cancer Mother skin Hypertension Mother Stroke Mother Colon Cancer Other Relation Status Comments Father Mother Other Social History Tobacco Use Types Packs/Day Years Used Date Smoking Tobacco: Never Smokeless Tobacco: Never Alcohol Use Standard Drinks/Week Comments Yes 0 (1 standard drink = 0.6 oz pur e alcohol) AUDIT-C Answer Date Recorded Frequency of Alcohol Consumption 2-4 times a mon06/15/2018 Average Number of Drinks 1 or 2 018 Frequency of Binge Drinking Never 05/20 Sex and Gender Information Value Date Recorded Sex Assigned at Not on file Legal Sex Male 7:05 PM CDT Gender Identity Not on file Sexual Orientation Not on file Last Filed Vital Signs Vital Sign Reading Time Taken Comments Blood Pressure 142/92 06/15/2018 8:12 AM NETWORKING SPECIALIST Pulse 76 06/15/2018 8:12 AM NETWORKING SPECIALIST Temperature - - Respiratory Rate 20 06/15/2018 8:12 AM NETWORKING SPECIALIST Oxygen Saturation - - Inhaled Oxygen Concentration - - Weight 97.5 kg (215 lb) 07/02/2018 4:05 PM NETWORKING SPECIALIST Height 177.8 cm (5' 10) 07/02/2018 4:05 PM NETWORKING SPECIALIST Body Mass Index 30.85 07/02/2018 4:05 PM NETWORKING SPECIALIST Plan of Treatment Health Maintenance Due Date Last Done Comments Colorectal Cancer Screening Colonoscopy (10 Years) 1955 Hepatitis C 12/02/1975 DTaP, Tdap and Td Vaccines ( 1 - Tdap) 1976 Pneumococcal Vaccine: 50+ Ye ars (1 of 1 - PCV) 12/02/2007 Zoster Vaccines (1 of 2) 12/02/2007 COVID-19 Vaccine (1 - 2023-2 5 season) 2025 Influenza Adult (#1) 2025 RSV Immunization or 60+ Years (1 - 1-dose 75+ series) 2032 Hepatitis A Vaccines Aged Out No long er eligible based on patient's age to complete this topic Meningococcal B Vaccine Aged Out No l onger eligible based on patient's age to complete this topic Meningococcal Vaccine Aged Out No alphonso gabriel eligible based on patient's age to complete this topic RSV Immunizations Under 20 Months Aged Out No longer eligible based on patient's age to complete this topic Care Teams Airfield Defence Guard Relationship Specialty Start Date End Date Kate Snowden V, CULVERT INSTALLER- [address] [place] [address] [place] [address] PCP - General Nurse Practitioner Family 09/06/22
== END 2025-04-02 18:05 | disposition home or self-care (01) ==
LOC: ANHED 17:58
PROVIDERS: Emergency Provider Student in an Organized Health Care Education/Training Program; PCP Family Medicine
DX: S80.12XA Contusion of left lower leg, initial encounter (principal); X58.XXXA Exposure to other specified factors, initial encounter; Y93.67 Activity, basketball
CPT/HCPCS: 93971; 99284; A9270